=== PATIENT | male | born 1995 | race Caucasian/White ===

== ENCOUNTER 2024-04-12 12:24 | Emergency (ER) | payer OTHER, SELFPAY ==
[2024-04-12 12:26] VITALS: BP 139/102
[2024-04-12 12:47] VITALS: BMI 24.5
--- NOTE | 2024-04-12 13:07 | ED.GENMED ---
History of Present Illness
General
Chief Complaint: Skin Surface Trauma
Source: patient
Exam Limitations: none
Time Seen by Provider: 04/12/24 12:43
Nursing documentation reviewed up to this point in time: agreed with
Travel History
Have you had any contact with someone who has COVID-19?: No
Do you have any symptoms of coronavirus? Fever > 100 degrees, chills, cough, shortness of breath, sore throat, loss of taste or smell, muscle aches, or headache?: No
History of Present Illness
History of Present Illness:
28-year-old male presents emergency ferment due to self-inflicted lacerations to his left arm. He was stressed trying to relieve his anxiety. He got into an argument with his parents, and is very upset. He states he does not know to control his
anxiety. He denies suicidal or homicidal ideation.
Past History
Past History
ED Past Medical History: Hyperthyroidism, Psychiatric (Anxiety, bipolar disorder) and Other (Epididymitis)
ED Past Surgical History: Orthopedic
Social History
Tobacco: Former smoker
Alcohol: Occasional
Drug: None
Personal: Single
Living: with family
Employment: Not employed
Family History
Family History: Other (non contributory)
Review of Systems
Review of Systems
Allergies reviewed?: Yes
All Other Systems: Not applicable
Constitutional: Reports no symptoms
EENT: Reports no symptoms
Respiratory: Reports no symptoms
Cardiac: Reports no symptoms
ABD/GI: Reports no symptoms
: Reports no symptoms
Musculoskeletal: Reports no symptoms
Skin: Reports other (Left forearm skin laceration)
Neurological: Reports no symptoms
Endocrine: Reports no symptoms
Hematologic/Lymphatic: Reports no symptoms
Psychiatric: Reports anxiety
Phy Exam
Physical Exam
Physical Exam:
Physical Exam
General: Appears anxious, otherwise well-appearing
Neck: supple. no meningeal signs. normal posterior pharynx
Heart: s1/s2 regular rate and rhythm, no murmur. equal radial
pulses.
HEENT: Pupils equal round reactive to light, EOMI
Lungs: no acute respiratory distress. clear bilaterally
Abdomen: normal bowel sounds. not tender. no CVAT
Neuro: alert and oriented. no focal neurological deficits cranial nerves II through XII intact
Skin: no rash, laceration left forearm 2.5 cm
Psychiatric: well kept. interactive and cooperative
Extremities: no edema. no calf tenderness. negative homans. good distal pulses
Course
Orders/Labs/Results
Orders:
Orders
04/12/24 12:45
Crisis Consult Urgent
Reason for Consult: pt self harm
04/12/24 12:51
1:1 Observation - Suicide/ Violent Behavior As Directed
Vital Signs
Initial and Last Documented VS:
Initial Vital Signs
Temp Pulse Resp BP Pulse Ox
98.2 F 122 20 139/102 98
04/12/24 12:26 04/12/24 12:26 04/12/24 12:26 04/12/24 12:26 04/12/24 12:26
Last Documented Vital Signs
Temp Pulse Resp BP Pulse Ox
98.2 F 122 20 139/102 98
04/12/24 12:26 04/12/24 12:26 04/12/24 12:26 04/12/24 12:26 04/12/24 12:26
Procedures
Laceration Closure
Left Lower Arm:
Status of Wound: clean
Size of Wound in cm: 2.5
Description of Wound Edges: sharp
Preparation: cleaned with saline
Anesthesia: 1% Lidocaine with epi
Revision/Debridement: routine- no revision
Wound exploration: explored to base- no FB
Type of Closure: single layer closure
Skin Closure Material: 4-0 prolene
Number of sutures: 3
MDM/Problems Addressed
Differential Diagnosis Includes:
Laceration, anxiety
MDM/Problems Addressed:
28-year-old male with left forearm laceration, no suicidal ideation. No other injuries. Stable for discharge to crisis.
Chronic conditions affecting care: Psychiatric illness (Anxiety)
Acute Exacerbation and/or Progression of Chronic Illness: Psychiatric illness (Anxiety)
*Pulse Oximetry
Patient hypoxic: no
*EKG
Interpreted by ED Provider?: NA
*Panelbeater Interpretation
Rate: Panelbeater- N/A
*Critical Care Note
Total Time (30-74mins, 75-104mins- exclusive of procedures): Not Applicable
Patient Management
Discussion with other providers: Other (Crisis)
Escalation/DeEscalation of care consider admission/obs:
Admit not indicated
ED Attending Note
-
Portions of this chart may have been created with voice recognition software.� Occasional wrong word or��sound alike� substitutions may have occurred due to the inherent limitations of voice recognition software.
Discharge Plan
Departure
Patient Disposition: Home (Routine Discharge)
Date of Disposition: 04/12/24
Time of Disposition: 13:29
Patient with high blood pressure during this ER visit?: Yes
Condition: Good
Discharge Problem:
Laceration of forearm, left, Anxiety
Instructions: Laceration Repair With Stitches (DC), BLOOD PRESSURE
Prescriptions:
No Action
multivitamin 1 EACH tablet
1 ea PO DAILY
propylthiouracil 50 MG tablet
100 mg PO TID
atenolol 25 MG tablet
25 mg PO DAILY
fluticasone propionate 1 SPRAY spray,suspension
1 spray intranasal PRN PRN (Reason: congestion)
dextran 70-hypromellose [Artificial Tears (PF)] 1 EACH dropperette
1 drp BOTH EYES PRN PRN (Reason: eye irriation)
cannabidiol [Epidiolex] 1 UNIT solution
1 dose inhalation PRN PRN (Reason: pain)
Interventions
Interventions:
*Risk Screen - Suicide Last Done: 04/12/24 12:47
*General Assessment Last Done: 04/12/24 12:47
*Neglect/Abuse Screening Last Done: 04/12/24 12:47
*ED COVID-19 Vaccine History Last Done: 04/12/24 12:26
*Nursing Disposition Last Done: 04/12/24 13:39
ED-Skin Assessment Last Done: 04/12/24 12:47
Discharge Date and Time
Discharge Date/Time: 04/12/24 13:40
Print Language: [id number]
== END 2024-04-12 13:40 | disposition home or self-care (01) ==
LOC: EMR 12:24
PROVIDERS: EMERGENCY PHYSICIAN Emergency Medicine; FAMILY PHYSICIAN Family Medicine
DX: S51.812A Laceration without foreign body of left forearm, initial encounter (principal); F41.9 Anxiety disorder, unspecified; X78.9XXA Intentional self-harm by unspecified sharp object, initial encounter; F31.9 Bipolar disorder, unspecified; E05.90 Thyrotoxicosis, unspecified without thyrotoxic crisis or storm; Z87.891 Personal history of nicotine dependence
CPT/HCPCS: 99282; 12001